=== PATIENT | male | born 1975 | race Caucasian/White ===

== ENCOUNTER 2022-05-04 14:30 | Inpatient (IN) | payer OTHER ==
[~2022-05-04] VITALS: Ht 170.2 cm; Wt 80.7 kg
[2022-05-04 14:58] LABS: BASOPHILS ABSOLUTE AUTO 0.05 K/mm3 (0.00-0.23); BASOPHILS PERCENT AUTO 1 % (0-2); EOSINOPHILS PERCENT AUTO 0 % (0-6); Hematocrit 40.8 % (37.0-53.0); IMMATURE GRAN ABSOLUTE AUTO 0.05 K/mm3 (0.00-0.10); IMMATURE GRAN PERCENT AUTO 1 % (0-1); LYMPHOCYTES ABSOLUTE AUTO 0.61 K/mm3 (0.84-5.20); LYMPHOCYTES PERCENT AUTO 6 % (21-46); MONOCYTES ABSOLUTE AUTO 1.17 K/mm3 (0.16-1.47); MONOCYTES PERCENT AUTO 11 % (4-13); Mean Corpuscular HGB 33.1 pg (26.0-34.0); Mean Corpuscular HGB Conc 34.3 g/dL (31.5-36.5); Mean Corpuscular Volume 97 fL (80-100); NEUTROPHILS ABSOLUTE AUTO 9.11 K/mm3 (1.96-9.15); NEUTROPHILS PERCENT AUTO 83 % (41-73); Platelet Count 89 K/mm3 (150-400); RDW Coefficient Variation 14.8 % (11.7-14.2); RDW Standard Deviation 52.4 fL (35.1-46.3); Red Blood Cell Count 4.23 M/mm3 (4.30-5.90); White Blood Cell Count 10.99 K/mm3 (4.00-11.30)
[2022-05-04 15:26] LABS: Alanine Aminotransfer (ALT/SGP 110 U/L (12-78); Albumin, Blood 4.1 g/dL (3.4-5.0); Albumin/Globulin Ratio 0.9 (0.8-1.8); Alk Phos 291 U/L (50-136); Anion Gap 18 mmol/L (6-16); Aspartate Aminotrans (AST/SGOT 278 U/L (12-37); Bilirubin, Total 4.4 mg/dL (0.1-1.0); Blood Urea Nitrogen 11 mg/dL (8-24); Bun/Creatinine Ratio 19.8 (12.0-20.0); CO2, Blood 29 mmol/L (21-32); Calcium, Blood 9.5 mg/dL (8.5-10.1); Chloride, Blood 94 mmol/L (98-108); Creatinine, Blood 0.56 mg/dL (0.60-1.20); Ethanol (Alcohol), Blood, Med <3 mg/dL; Globulin, Blood 4.5 g/dL (2.2-4.0); Glomerular Filtration Rate 124 (60-); Glucose, Blood 154 mg/dL (70-99); Potassium, Blood 4.3 mmol/L (3.5-5.5); Sodium, Blood 141 mmol/L (136-145); Total Protein, Blood 8.6 g/dL (6.4-8.2)
--- NOTE | 2022-05-04 23:51 | NUR ---
RECEIVED REPORT FROM KWADWO RAYA IN ED. PT ARRIVED TO ICU 8 ON A STRETCHER WITH IV FLUIDS INFUSING. PT IS CONFUSED. ALERT TO SELF AND ABLE TO ANSWER SOME QUESTIONS BUT IS HAVING SOME HALLUCINATIONS. HE IS REDIRECTABLE, HOWEVER HE HAS SEVERE TREMORS. HIS CIWA SCORE IN ED WAS 26. CURRENTLY HE'S SCORING 25-28. INFORMED DR. STANLEY THAT 2MG OF ATIVAN WAS GIVEN AND PT IS EXTREMELY CONFUSED AND TREMULOUS STILL. NEW ORDERS ENTERED AND WILL CONTINUE TO MONITOR. SR ON MONITOR WITH HR IN 70-90s. BP IS ELEVATED WITH SBP IN LOW 100s. PT IS AFEBRILE. NPO. , VICTORINO, WAS AT BEDSIDE WHEN PT WAS ADMITTED AND GAVE ME A COPY OF PT'S ADVANCE DIRECTIVE THAT STATES THAT THE PT DOES NOT WANT ANY BLOOD PRODUCTS BESDIES HIS OWN FOR SURGICAL PROCEDURES. COPY MADE AND PLACED IN THE CHART.
[2022-05-05 04:50] LABS: BASOPHILS ABSOLUTE AUTO 0.04 K/mm3 (0.00-0.23); BASOPHILS PERCENT AUTO 1 % (0-2); EOSINOPHILS ABSOLUTE AUTO 0.05 K/mm3 (0.00-0.68); EOSINOPHILS PERCENT AUTO 1 % (0-6); Hemoglobin 12.6 g/dL (13.5-17.5); IMMATURE GRAN ABSOLUTE AUTO 0.04 K/mm3 (0.00-0.10); IMMATURE GRAN PERCENT AUTO 1 % (0-1); LYMPHOCYTES ABSOLUTE AUTO 0.67 K/mm3 (0.84-5.20); LYMPHOCYTES PERCENT AUTO 11 % (21-46); MONOCYTES ABSOLUTE AUTO 0.63 K/mm3 (0.16-1.47); MONOCYTES PERCENT AUTO 10 % (4-13); Mean Corpuscular HGB 32.9 pg (26.0-34.0); Mean Corpuscular HGB Conc 34.1 g/dL (31.5-36.5); Mean Corpuscular Volume 97 fL (80-100); NEUTROPHILS ABSOLUTE AUTO 4.85 K/mm3 (1.96-9.15); NEUTROPHILS PERCENT AUTO 77 % (41-73); Platelet Count 59 K/mm3 (150-400); RDW Coefficient Variation 14.6 % (11.7-14.2); RDW Standard Deviation 51.9 fL (35.1-46.3); Red Blood Cell Count 3.83 M/mm3 (4.30-5.90); White Blood Cell Count 6.28 K/mm3 (4.00-11.30)
[2022-05-05 05:08] LABS: Albumin, Blood 3.4 g/dL (3.4-5.0); Albumin/Globulin Ratio 0.9 (0.8-1.8); Bilirubin, Total 3.7 mg/dL (0.1-1.0); Bun/Creatinine Ratio 18.1 (12.0-20.0); Calcium, Blood 8.4 mg/dL (8.5-10.1); Creatinine, Blood 0.55 mg/dL (0.60-1.20); Globulin, Blood 3.9 g/dL (2.2-4.0); Potassium, Blood 3.4 mmol/L (3.5-5.5); Total Protein, Blood 7.3 g/dL (6.4-8.2)
--- NOTE | 2022-05-05 05:16 | NUR ---
Shift summary: Neuro: Pt alert to person and knows the month and year. He states that it's 04/21/22. His CIWA scores had been as high as 26 and this morning they were 13. He was hallucinating when he arrived to the ICU, however, that seems to be 0resolved now. Cardiac: SR, SBP 130-140s/DBP elevated in low 100s. Resp: Clear, RA with O2 sats in high 90s and has an occaisional cough GI: Regular diet, LBM 05/04 : Voided 450ml of clear mar/orange urine per urinal Other: Pt has 2 PIV in right arm. He has received 5mg of ativan since arriving to ICU and has tolerated well. He states that this is his first time withdrawing from alcohol.
[2022-05-05 05:19] LABS: U Amphetamine Screen Not Detected; U Barbituate Screen Not Detected; U Benzodiazapine Screen DETECTED; U Buprenorphine Screen Not Detected; U Cannabinoids Screen Not Detected; U Cocaine Screen Not Detected; U Methadone Screen Not Detected; U Methamphetamine Screen Not Detected; U Opiates Screen Not Detected; U Oxycodone Screen Not Detected; U Phencyclidine Screen Not Detected; U Propoxyphene Screen Not Detected
--- NOTE | 2022-05-05 14:11 | NUR ---
CARE NOTE PT NOW APPEARS TO BE SLEEPING COMFORTABLY. PT WAS AGITATED, ANXIOUS, AND HAVING VISUAL HALLUCINATIONS REGARDING CLOWNS BEING IN ROOM. HE WAS ALSO ATTEMPTING TO GET OUT OF BED. HE WAS NOT REDIRECTABLE. SECURITY CALLED, [employer] PRODUCER ASSISTED W/ PT WELL CASSANDRA RAYA. DR. VILLARREAL MADE AWARE. ALL OF THIS OCCURED AT APPROX. 1300. PRECEDEX STARTED, PLEASE SEE EMAR FOR TIME. HR AND BP STABLE. WILL CONTINUE TO MONITOR. CALL LIGHT IS IN REACH. BED ALARM ON.
--- NOTE | 2022-05-05 15:04 | NUR ---
CARE NOTE HR NOTED TO BE IN 50'S, PRECEDEX TITRATED, PLEASE SEE ICU FLOWSHEET.
--- NOTE | 2022-05-05 17:22 | NUR ---
SHIFT SUMMARY PT IS ALERT AND ORIENTED TO SELF, PLACE, VICTORINO, MONTH/YEAR. AT TIMES HE IS ORIENTED TO HIS SITUATION BUT OTHER TIMES HE WILL WAKE UP AND BE FORGETFUL TO WHY HE IS STILL IN HOSPITAL. PLEASE SEE ALCOHOL ASSESSMENT FOR CIWA SCORING. PRECEDEX INFUSING PER EMAR ORDERS, BP STABLE, HR HAS RANGED 50-70'S PER TELE MONITORING, SPO2 97-100% VIA ROOM AIR. PLEASE SEE PREVIOUS NOTE REGARDING NEED TO START PRECEDEX INCLUDING PT BECOMING AGITATED, HAVING HALLUCINATIONS AND ANXIETY. SINCE PRECEDEX INITIATION AT APPROX. 1328, PT HAS APPEARD MORE COMFORTABLE AND HAS APPEARED TO BE SLEEPING ON AND OFF. AT APPROX 1300 THIS NURSE BLADDER SCANNED PT BECAUSE HE HAD NOT VOIDED, BLADDER SCAN SHOWED >999. THIS NURSE ATTEMPTED TO WAKE PT TO USE BEDSIDE URINAL UNSUCCESSFULLY. ORDER FOR RAMIRES CATHETER OBTAINED BUT PRIOR TO INSERTION, PT WOKE UP AND WAS ABLE TO USE BEDSIDE URINAL. HE IS NOW EATING DINNER, HIS VICTORINO IS AT BEDSIDE WELL HIS NEPHEW. CALL LIGHT IS IN REACH. WILL CONTINUE TO MONITOR UNTIL REPORT GIVEN. BED ALARM ON.
[2022-05-06 03:12] LABS: Source, Urine Foley catheter
[2022-05-06 03:25] LABS: Appearance, Urine Clear (Clear); Bilirubin, Urine Neg (Neg); Blood, Urine Neg (Neg); Color, Urine Yellow (P-Yellow); Glucose Qualitative, Urine Neg (Neg); Ketones, Urine Neg (Neg); Leukocyte Esterase, Urine Neg (Neg); Nitrite, Urine Neg (Neg); Protein, Urine Neg (Neg); Urobilinogen, Urine 1+ (Normal)
[2022-05-06 04:55] LABS: BASOPHILS ABSOLUTE AUTO 0.06 K/mm3 (0.00-0.23); BASOPHILS PERCENT AUTO 1 % (0-2); EOSINOPHILS ABSOLUTE AUTO 0.14 K/mm3 (0.00-0.68); EOSINOPHILS PERCENT AUTO 2 % (0-6); Hemoglobin 12.7 g/dL (13.5-17.5); IMMATURE GRAN ABSOLUTE AUTO 0.03 K/mm3 (0.00-0.10); IMMATURE GRAN PERCENT AUTO 1 % (0-1); LYMPHOCYTES ABSOLUTE AUTO 0.64 K/mm3 (0.84-5.20); LYMPHOCYTES PERCENT AUTO 10 % (21-46); MONOCYTES ABSOLUTE AUTO 0.54 K/mm3 (0.16-1.47); MONOCYTES PERCENT AUTO 8 % (4-13); Mean Corpuscular HGB 33.3 pg (26.0-34.0); Mean Corpuscular HGB Conc 34.3 g/dL (31.5-36.5); Mean Corpuscular Volume 97 fL (80-100); Mean Platelet Volume 11.6 fL (9.1-12.4); NEUTROPHILS ABSOLUTE AUTO 5.15 K/mm3 (1.96-9.15); NEUTROPHILS PERCENT AUTO 79 % (41-73); Platelet Count 60 K/mm3 (150-400); RDW Coefficient Variation 14.4 % (11.7-14.2); RDW Standard Deviation 51.6 fL (35.1-46.3); Red Blood Cell Count 3.81 M/mm3 (4.30-5.90); White Blood Cell Count 6.56 K/mm3 (4.00-11.30)
[2022-05-06 05:16] LABS: Bun/Creatinine Ratio 12.9 (12.0-20.0); Calcium, Blood 9.1 mg/dL (8.5-10.1); Creatinine, Blood 0.54 mg/dL (0.60-1.20); Potassium, Blood 3.5 mmol/L (3.5-5.5)
--- NOTE | 2022-05-06 06:38 | NUR ---
Shift summary: Neuro: Pt A&O x4. His CIWA scores have been 3-9 overnight. No hallucinations, Precedex drip titrated down. Pt slept well and seems to be feeling better. Cardiac: SR with HR 50-70s, BP WNL. Resp: Clear, RA with O2 sats in high 90s and has an occasional cough GI: Regular diet, LBM this morning : Voided both per urinal and in toilet Other: Pt has 2 PIV in right arm with IV fluids infusing. No ativan given overnight. Bed alarm on, however pt has been using call-light for assistance. ordered hepatitis panel per 's request.
--- NOTE | 2022-05-06 21:16 | NUR ---
ASSUMED CARE/CALL TO MD ASSUMED CARE AT 1900. PT A/O X 4. COOPERATIVE WITH CARE. PT AND VOICED CONCERNS ABOUT PT NOT BEING ABLE TO SLEEP AND WANTING TO START PRECEDEX. CALL TO DR HICKMAN REGARDING MEDICATION FOR SLEEP. ORDERS RECEIVED TO GIVE MELATONIN AND CALL BACK IN TWO HOURS IF NEEDED. CIWA SCORE OF 6. SEE SHIFT ASSESSMENT FOR FULL ASSESSMENT. PT UP WITH ONE PERSON ASSIST. WILL GIVE REPORT TO DIPTI RAYA.
--- NOTE | 2022-05-06 21:49 | NUR ---
THIS AUTHOR ASSUMED PT CARES AT 0 AFTER RECEIVING REPORT
--- NOTE | 2022-05-06 22:18 | NUR ---
PT IS ASLEEP AT LAST CHECK; WILL HOLD OFF ON FURTHER MEDICATIONS FOR NOW
--- NOTE | 2022-05-06 23:20 | NUR ---
PT REPORTS BEING WIDE AWAKE. PER EVELIO MAGAÑA TO TRY 50MG TRAZODONE QHS PRN.
--- NOTE | 2022-05-07 06:20 | NUR ---
SHIFT SUMMARY: Patient had a mostly uneventful night. Please see previous notes by this author during this shift. Patient reports intermittment but non-restful sleep. Attempted trying melatonin and trazodone. CIWA score at 0000 was 8; and at 0400 was 6. Patient given one dose PRN Librium. NEURO: afebrile, cooperative, little bit frustrated with insomnia. Mild tremors, mild sweating, mild headache. Oriented. Wants to go home today. CARDS: SR; SBP WDL, DBP increasing towards morning. No edema noted. RESP: RA; SpO2 >90%. LS clear. MSK: not out of bed this shift. INTEG: no new abnormalities. : voiding into urinal with no issues. GI: no BM reported to this author.
[2022-05-07 08:06] LABS: Hematocrit 42.1 % (37.0-53.0); Hemoglobin 14.4 g/dL (13.5-17.5); Mean Corpuscular HGB 33.1 pg (26.0-34.0); Mean Corpuscular HGB Conc 34.2 g/dL (31.5-36.5); Mean Corpuscular Volume 97 fL (80-100); Mean Platelet Volume 11.4 fL (9.1-12.4); Platelet Count 96 K/mm3 (150-400); RDW Coefficient Variation 14.3 % (11.7-14.2); Red Blood Cell Count 4.35 M/mm3 (4.30-5.90); White Blood Cell Count 8.11 K/mm3 (4.00-11.30)
[2022-05-07 08:23] LABS: Alanine Aminotransfer (ALT/SGP 109 U/L (12-78); Albumin, Blood 3.3 g/dL (3.4-5.0); Albumin/Globulin Ratio 0.8 (0.8-1.8); Alk Phos 317 U/L (50-136); Anion Gap 10 mmol/L (6-16); Aspartate Aminotrans (AST/SGOT 201 U/L (12-37); Bilirubin, Direct 3.2 mg/dL (0.0-0.3); Bilirubin, Indirect 1.4 mg/dL (0.1-0.7); Bilirubin, Total 4.6 mg/dL (0.1-1.0); Blood Urea Nitrogen 9 mg/dL (8-24); Bun/Creatinine Ratio 16.1 (12.0-20.0); CO2, Blood 23 mmol/L (21-32); Calcium, Blood 10.1 mg/dL (8.5-10.1); Chloride, Blood 105 mmol/L (98-108); Creatinine, Blood 0.56 mg/dL (0.60-1.20); Globulin, Blood 4.1 g/dL (2.2-4.0); Glomerular Filtration Rate 124 (60-); Glucose, Blood 104 mg/dL (70-99); Phosphorus, Blood 4.2 mg/dL (2.5-4.9); Potassium, Blood 3.7 mmol/L (3.5-5.5); Sodium, Blood 138 mmol/L (136-145); Total Protein, Blood 7.4 g/dL (6.4-8.2)
[2022-05-07 08:50] LABS: BAND PERCENT MAN 3 % (0-8); BASOPHILS ABSOLUTE MAN 0.08 K/mm3 (0.00-0.23); BASOPHILS PERCENT MAN 1 % (0-2); EOSINOPHILS PERCENT MAN 0 % (0-6); LYMPHOCYTES ABSOLUTE MAN 0.56 K/mm3 (0.84-5.20); LYMPHOCYTES PERCENT MAN 7 % (21-46); MONOCYTES ABSOLUTE MAN 0.97 K/mm3 (0.16-1.47); MONOCYTES PERCENT MAN 12 % (4-13); NEUTROPHILS ABSOLUTE MAN 6.48 K/mm3 (1.96-9.15); SEG NEUTROPHILS PERCENT MAN 77 % (41-73); TOTAL CELLS COUNTED 100
--- NOTE | 2022-05-07 10:16 | NUR ---
ASSUMED PT CARE AT 0700 PT SLEEPING; HOWEVER, EASILY AROUSABLE. ALERT AND ORIENTED AND ABLE TO MAKE NEEDS KNOWN. CIWA OF 8. PT VERY TREMULOUS WITH ARMS EXTENDED. PALMS AND FEET ARE SWEATY. PROVIDED ORDERED DOSE OF LIBRIUM. PT ANXIOUSLY WANTS TO GO HOME. DENIES BEING AGITATED. AT BEDSIDE AFTER BREAKFAST. VERY INVOLVED WITH CARES. PT UP TO TOILET FOR A BM; VERY WEAK AND UNSTEADY GAIT. EDUCATED ON CALLING FOR ASSISTANCE PRIOR TO TRANSFERRING IN ORDER TO KEEP PT SAFE AND AVOID ANY FALLS. PT VERBALIZED UNDERSTANDING. PT CURRENTLY IN SHOWER. D5 1/2 NS WITH 10MEQ OF POTASSIUM INFUSING AT 100ML/HR; CURRENTLY ON STANDBY FOR SHOWER, BUT WILL RESUME ONCE PT IS BACK IN ROOM. VSS, NSR WITH HR 80-100'S. LIVER ULTRASOUND COMPLETED. WILL CONTINUE TO MONITOR.
--- NOTE | 2022-05-07 14:33 | NUR ---
REPORTED OFF TO ELVER HADDAD
--- NOTE | 2022-05-07 21:05 | NUR ---
ASSUMED CARE ASSUMED CARE AT 1900. PT A/O X 4. CALM AND COOPERATIVE WITH CARE. PT VOICES CONCERN ABOUT SLEEPING TONIGHT. STATES HE DID NOT SLEEP THE NIGHT BEFORE. REASSURANCE GIVEN THAT HIS TRAZODONE DOSE HAS BEEN INCREASED. PT VERY ANXIOUS ABOUT GOING HOME. CIWA 4. MEDICATED PER EMAR. VSS. PT AMBULATED AROUND EAST SIDE OF UNIT WITH WALKER AND GAIT BELT, APPROXIMATELY 5 LAPS. AT BEDSIDE.
--- NOTE | 2022-05-08 00:21 | NUR ---
SLEEPING PT CURRENTLY SLEEPING. CIWA 0.
--- NOTE | 2022-05-08 03:55 | NUR ---
PT SLEEPING ON ROUNDS PT SLEEPING AT 0245 AND 0355. CIWA 0.
--- NOTE | 2022-05-08 05:33 | NUR ---
SHIFT SUMMARY NO ACUTE EVENTS T/O NIGHT. VSS. PT SLEPT MOST OF THE NIGHT AFTER RECEIVING TRAZADONE. MEDICATED WITH LIBRIUM TWICE. PT VOIDING IN URINAL AT BEDSIDE. UP WITH ONE ASSIST. ON CAMERA. WILL REPORT OFF TO ONCOMING RN.
[2022-05-08 07:26] LABS: Albumin, Blood 2.9 g/dL (3.4-5.0); Albumin/Globulin Ratio 0.8 (0.8-1.8); Bilirubin, Total 3.2 mg/dL (0.1-1.0); Bun/Creatinine Ratio 18.9 (12.0-20.0); Creatinine, Blood 0.63 mg/dL (0.60-1.20); Globulin, Blood 3.7 g/dL (2.2-4.0); Potassium, Blood 3.8 mmol/L (3.5-5.5); Total Protein, Blood 6.6 g/dL (6.4-8.2)
[2022-05-08] MEDS ORDERED: CHLO25 PO (13:17)
[2022-05-08] MEDS ORDERED: TRAZ150T57 PO (13:17)
--- NOTE | 2022-05-08 13:55 | NUR ---
PT A/O X4. DENIES ANXIETY OR AGITATION TODAY. DELCINES LIBRIUM. SEE CIWA DOCUMENTATION. PT DISCHARGED PER DR. CASAS. DISCHARGE INSTRUCTIONS GIVEN TO PT AND SPOUSE. NO SIGN OF DISTRESS PT LEAVING THE UNIT VIA W/C.
[2022-05-09 11:08] LABS: HBSAG SCREEN Negative (Negative); HCV AB <0.1 (0.0-0.9); HEP A AB, IGM Negative (Negative); HEP B CORE AB, TOT Negative (Negative)
[2022-05-09 19:08] LABS: HBSAG SCREEN Negative (Negative); HCV AB <0.1 (0.0-0.9); HEP A AB, IGM Negative (Negative); HEP B CORE AB, IGM Negative (Negative)
== END 2022-05-08 14:08 | disposition home or self-care (01) | DRG 897 ==
LOC: ER 14:30 → ERHOLD 19:07 → ICUE 19:07
PROVIDERS: Internal Medicine; Internal Medicine Endocrinology, Diabetes & Metabolism; Physician Assistant; ADMIT Internal Medicine
PROC: HZ2ZZZZ Detoxification Services for Substance Abuse Treatment (ICD-10-PCS; principal; 2022-05-04)
DX: F10.239 Alcohol dependence with withdrawal, unspecified (principal); D69.59 Other secondary thrombocytopenia; K70.9 Alcoholic liver disease, unspecified; I10 Essential (primary) hypertension; G47.33 Obstructive sleep apnea (adult) (pediatric); E78.5 Hyperlipidemia, unspecified; R74.01 Elevation of levels of liver transaminase levels; G47.00 Insomnia, unspecified; E80.6 Other disorders of bilirubin metabolism; F43.10 Post-traumatic stress disorder, unspecified; Z87.891 Personal history of nicotine dependence; Y90.0 Blood alcohol level of less than 20 mg/100 ml
CPT/HCPCS: 36415; 76705; 80048; 80053; 80074; 80076; 81003; 83735; 84100; 85007; 85025; 85027; 86704; 86708; 86803; 87340; 93005; 93010; 96374; 96375; 96376; 99285-25; A9270; G0480; J1650; J2060; J2550; J3475; J3480; J7030; J7050